=== PATIENT | female | born 1990 ===

== ENCOUNTER 2019-04-04 16:51 | Emergency (ER) | payer SELFPAY ==
[~2019-04-04] VITALS: Ht 154.9 cm; Wt 68.2 kg
[2019-04-04 16:58] VITALS: BP 115/78; TEMP 98.2
[2019-04-04 19:30] VITALS: PULSE 84
== END 2019-04-04 19:32 | disposition home or self-care (01) ==
LOC: COL.ER 16:51
DX: G89.29 Other chronic pain (principal); M25.562 Pain in left knee

== ENCOUNTER 2020-10-25 20:21 | Emergency (ER) | payer OTHER ==
[~2020-10-25] VITALS: Ht 157.5 cm; Wt 65.9 kg
[2020-10-25 20:25] VITALS: TEMP 98.2
[2020-10-25 21:14] LABS: ALANINE AMINOTRANSFERASE 13 U/L (4-34); ALBUMIN 4.1 gm/dL (3.5-5.0); ALKALINE PHOSPHATASE 39 U/L (50-136); ANION GAP 7 mmol/L (7-16); AST,SGOT 23 U/L (15-37); BILIRUBIN,TOTAL 0.2 mg/dL (0.0-1.0); BLOOD UREA NITROGEN 18 mg/dL (7-17); CALCIUM 8.5 mg/dL (8.4-10.2); CARBON DIOXIDE 23 mmol/L (22-30); CHLORIDE 109 mmol/L (98-107); CREATININE, serum 0.77 (0.52-1.25); GLUCOSE 118 mg/dL (74-106); POTASSIUM 3.5 mmol/L (3.4-5.0); SODIUM 139 mmol/L (137-145); TOTAL PROTEIN 7.3 gm/dL (6.4-8.2)
[2020-10-25 21:21] LABS: BASO % 0.5 % (0.0-2.0); EOS # 0.1 (0.0-0.7); EOS % 1.2 % (0-4.0); GRAN # 4.2 (1.4-6.5); GRAN % 55.9 % (42.2-75.2); HEMOGLOBIN 11.8 g/dl (12.5-16.0); LYMPH # 2.6 (1.2-3.4); LYMPH % 34.8 % (20.0-51.0); MEAN CELL VOLUME 86 fl (80.0-100.0); MEAN CORPUSCULAR HEMOGLOBIN 28 pg (27.0-31.0); MEAN CORPUSCULAR HGB CONC 32 g/dl (33.0-37.0); MEAN PLATELET VOLUME 8.8 fl (7.4-10.4); MONO # 0.6 (0.1-0.6); MONO % 7.5 % (1.7-9.3); PLATELET COUNT 269 K/mm3 (130-400); RED BLOOD COUNT 4.29 M/mm3 (4.10-5.30); REDCELL DISTRIBUTION WIDTH-CV 12.6 % (11.5-14.5)
[2020-10-25 21:24] LABS: HEMATOCRIT 36.7 % (37.0-47.0)
[2020-10-25 21:45] LABS: TROPONIN-I < 0.012 ng/mL (0.000-0.035)
[2020-10-25 21:53] VITALS: BP 124/70; PULSE 84
[2020-10-25] MEDS ORDERED: NAPROSYN500 MG PO (22:02)
[2020-10-25] MEDS ORDERED: FLEXERIL 1010 MG/TAB PO (22:02)
[2020-10-25] MEDS ORDERED: MEDROL 4MG DOSPA4 MG PO (22:02)
--- NOTE | 2020-10-26 09:33 | NUR ---
The patient has [employer]. [employer] faxed [facility] updates [facility].
== END 2020-10-25 22:07 | disposition home or self-care (01) ==
LOC: COL.ER 20:21
PROVIDERS: Family Medicine
DX: R07.89 Other chest pain (principal); M25.561 Pain in right knee
CPT/HCPCS: J1885; J2360

== ENCOUNTER 2021-03-03 17:31 | Emergency (ER) | payer OTHER ==
[~2021-03-03] VITALS: Ht 154.9 cm; Wt 65.9 kg
[~2021-03-03 17:31] MED LIST: FLEXERIL 1010 MG/TAB PO; MEDROL 4MG DOSPA4 MG PO; NAPROSYN500 MG PO
[2021-03-03 17:49] VITALS: TEMP 98.2
[2021-03-03 19:31] LABS: COLLECTION METHOD CLEAN CATCH
[2021-03-03 19:47] LABS: MUCOUS Present /lpf; PH 7 (5-8); SQUAMOUS EPITHELIAL 20-50 /hpf; URINE APPEARANCE Cloudy; URINE BACTERIA Rare /hpf; URINE BILIRUBIN Negative (NEGATIVE); URINE BLOOD Negative (NEGATIVE); URINE COLOR Yellow; URINE GLUCOSE Negative (NEGATIVE); URINE KETONE Negative (NEGATIVE); URINE LEUKOCYTE ESTERASE 1+ (NEGATIVE); URINE NITRATE Negative (NEGATIVE); URINE PROTEIN(semi-quant) Negative (NEGATIVE); URINE RBC 0-2 /hpf; URINE UROBILINOGEN Negative (NEGATIVE)
[2021-03-03 21:00] VITALS: BP 126/70; PULSE 68
== END 2021-03-03 21:00 | disposition home or self-care (01) ==
LOC: COL.ER 17:31
PROVIDERS: Emergency Medicine
DX: O26.891 Other specified pregnancy related conditions, first trimester (principal); R10.2 Pelvic and perineal pain; N89.8 Other specified noninflammatory disorders of vagina; Z3A.00 Weeks of gestation of pregnancy not specified